=== PATIENT | female | born 1950 | race Caucasian/White ===

== ENCOUNTER 2021-08-10 11:56 | Emergency (ER) | payer MEDICARE, BC ==
[~2021-08-10] VITALS: Ht 167.6 cm; Wt 84.0 kg
[2021-08-10] VITALS (7 sets, daily range): BP systolic 58–147; BP diastolic 38–104
[2021-08-10] MEDS ORDERED: ASPIRIN81 MG PO (12:25)
[2021-08-10] MEDS ORDERED: FAMOTIDINE20 M1 PO (12:26)
[2021-08-10] MEDS ORDERED: METOPROL TAR25 MG PO (12:26)
[2021-08-10] MEDS ORDERED: PROTONIX40 M2 PO (12:26)
[2021-08-10] MEDS ORDERED: LEVOTHYROXIN50 MCG PO (12:27)
[2021-08-10] MEDS ORDERED: LIPITOR10 M1 PO (12:27)
== END 2021-08-10 13:28 | disposition home or self-care (01) ==
LOC: ED 11:56
DX: M79.641 Pain in right hand (principal); I10 Essential (primary) hypertension; K21.9 Gastro-esophageal reflux disease without esophagitis